=== PATIENT | male | born 1950 | race Caucasian/White ===

== ENCOUNTER 2017-08-14 12:30 | Inpatient (IN) ==
[2017-08-14 13:13] LABS: Basophils % 0.5 % (0.1-2.0); Eosinophils # 0.3 K/mm3 (0.0-0.4); Eosinophils % 4.9 % (0.1-12.0); Hematocrit 26.3 % (42.0-52.0); Lymphocytes % 15.8 K/mm3 (10-50); Mean Corpuscular HGB Conc 24.4 g/dL (31.8-35.4); Mean Corpuscular Hemoglobin 16.2 pg (27.0-31.2); Mean Corpuscular Volume 66.5 fl (80-94); Mean Platelet Volume 8.7 fl (7.4-10.4); Monocytes # 0.3 K/mm3 (0.1-1.0); Monocytes % 5.2 % (1.7-9.3); Neutrophils # 4.8 K/mm3 (1.8-7.8); Neutrophils % 73.6 % (37.0-80.0); Platelet Count 267 K/mm3 (142-424); Red Blood Count 3.96 M/mm3 (4.60-6.20); Red Cell Distribution Width 20.2 % (11.5-17.5); White Blood Count 6.5 K/mm3 (4.8-10.8)
[2017-08-14 13:16] LABS: Hemoglobin 6.4 g/dL (14.1-18.0)
[2017-08-14 13:24] LABS: Activated Partial Thrombo Time 23.6 seconds (23.6-34.0); Prothrombin Time 10.3 seconds (9.4-11.8)
[2017-08-14 13:29] LABS: Albumin Level 3.5 gm/dL (3.4-5.0); Anion Gap 11.9 mEq/L (5-15); Bilirubin,Total 0.6 mg/dL (0.2-1.0); Calcium 8.6 mg/dL (8.5-10.1); Globulin 3.5 gm/dl (1.3-3.2); Potassium 3.9 mmoL/L (3.5-5.1)
--- NOTE | 2017-08-14 13:41 | Emergency Department Note ---
ED Disposition Clinical Impression: Stool guaiac positive, Abdominal pain, RLQ Anemia Qualifiers: Anemia type: unspecified type Qualified Code(s): D64.9 - Anemia, unspecified Disposition: Admitted As Inpatient Condition on Discharge: Good Time of Disposition: 14:26 - Critical Care Critical Care Time: No Attestation: On 08/14/17, the high probability of a clinically significant, sudden or life threatening deterioration of the following system(s) required my full and direct attention, intervention and personal management. The time I documented below is in addition to time spent performing reported procedures but includes the following listed in this critical care notation. Medical Decision Making - Myles Inquiry Pt receiving controlled substance: No Vital Signs: 08/14/17 12:30 08/14/17 16:00 08/14/17 16:25 Temperature 98.2 F 98.4 F 98.3 F Temperature Source Oral Oral Oral Pulse Rate 70 Pulse Rate [Right Radial] 93 H 83 Respiratory Rate 18 20 20 Blood Pressure 126/70 Blood Pressure [Right Arm] 141/75 137/75 Blood Pressure Mean [Right Arm] 97 95 Blood Pressure Source Automatic Cuff Blood Pressure Source [Right Arm] Automatic Cuff Automatic Cuff Blood Pressure Position Supine Blood Pressure Position [Right Arm] Sitting Supine 02 Sat by Pulse Oximetry 97 97 Oxygen Delivery Method Room Air Room Air Room Air - Lab Data Lab results reviewed: Yes: I reviewed the patient's lab results. Lab Results 08/14/17 13:00: WBC 6.5, RBC 3.96 L, Hgb 6.4 L*, Hct 26.3 L, MCV 66.5 L, MCH 16.2 L, MCHC 24.4 L, RDW 20.2 H, Plt Count 267, MPV 8.7, Neut % (Auto) 73.6, Lymph % (Auto) 15.8, [place] % (Auto) 5.2, Eos % (Auto) 4.9, Baso % (Auto) 0.5, Neut # (Auto) 4.8, Lymph # (Auto) 1.0, [place] # (Auto) 0.3, Eos # (Auto) 0.3, Baso # (Auto) 0.0 08/14/17 13:00: Sodium 141, Potassium 3.9, Chloride 106, Carbon Dioxide 27, Anion Gap 11.9, BUN 13, Creatinine 1.01, Estimated Creat Clear 110, Estimated GFR 74, Est GFR ( Amer) 89, Glucose 122 H, Calcium 8.6, Total Bilirubin 0.6, AST 18, ALT 19, Alkaline Phosphatase 202 H, Total Protein 7.0, Albumin 3.5 , Globulin 3.5 H, Albumin/Globulin Ratio 1.0 L 08/14/17 13:00: PT 10.3, INR 1.00, APTT 23.6 08/14/17 13:05: Blood Type B Positive, Antibody Screen Negative, Crossmatch (AHG ) See Detail 08/14/17 14:00: Stool Occult Blood Positive A 08/14/17 15:20: Blood Type Confirm B Positive Result diagrams: 08/16/17 06:37 08/16/17 06:37 Orders (Tests/Meds): ED MEDICATIONS Discontinued Medications Generic Name Dose Route Start Last Admin Trade Name Freq PRN Reason Stop Dose Admin Acetaminophen 650 mg 08/14/17 15:41 Acetaminophen 325mg Tab PO 09/13/17 15:40 Q4HP PRN As Needed for Fever or Pain Barium Sulfate 135 ml 08/15/17 10:28 08/15/17 10:29 Rad-Barium Sulfate(E-Z-Hd 340gm);135ml PO 08/15/17 10:29 135 ml ONCE ONE Administration Barium Sulfate 355 ml 08/15/17 10:28 08/15/17 10:29 Rad-Barium Sulf(Liquid E-Z-Paque);355ml Bot PO 08/15/17 10:29 355 ml ONCE ONE Administration Furosemide 40 mg 08/14/17 21:00 08/16/17 08:16 Lasix 40mg Tablet PO 09/13/17 20:59 40 mg BID OBI Administration Sodium Chloride 1,000 mls @ 999 mls/hr 08/14/17 13:00 08/14/17 12:59 Sod Chlor 0.9% 1000ml Bag IV 08/14/17 14:00 999 mls/hr .Q1H1M OBI Administration Sodium Chloride 250 mls @ 25 mls/hr 08/14/17 14:30 08/15/17 05:14 Sod Chlor 0.9% 250ml Bag IV 08/15/17 14:29 Not Given .Q10H OBI Sodium Chloride 250 mls @ 25 mls/hr 08/14/17 15:41 08/15/17 05:15 Sod Chlor 0.9% 250ml Bag IV 08/15/17 14:29 Not Given .Q10H OBI Sodium Chloride 250 mls @ 25 mls/hr 08/15/17 07:30 08/16/17 08:16 Sod Chlor 0.9% 250ml Bag IV 08/16/17 07:29 Not Given .Q10H OBI Metoprolol Tartrate 50 mg 08/14/17 21:00 08/16/17 08:16 Lopressor 50mg Tablet PO 09/13/17 20:59 50 mg BID OBI Administration Pantoprazole Sodium 40 mg 08/14/17 21:00 08/14/17 15:03 Protonix 40mg Vial IV 09/13/17 20:59 40 mg BID OBI Administration Pantoprazole Sodium 40 mg 08/14/17 21:00 08/16/17 08:16 Protonix 40mg Vial IV 09/13/17 20:59 40 mg BID OBI Administration Potassium Chloride 10 meq 08/14/17 21:00 08/16/17 08:16 Micro-K 10meq Capsule PO 09/13/17 20:59 10 meq BID OBI Administration Pravastatin Sodium 40 mg 08/14/17 21:00 08/15/17 20:27 Pravachol 40mg Tablet PO 09/13/17 20:59 40 mg HS OBI Administration Simethicone/Sodium Bicarb/Citric Ac 1 each 08/15/17 10:28 08/15/17 10:30 Rad-E-Z-Gas Ii Effervescent Granules;1pk PO 08/15/17 10:29 1 each ONCE ONE Administration - Physician Consults Physician Consulted: Dr. Preciado on service call/spoke with Alla Time: 14:26 (admit to Dr. Preciado w sgy consult) Additional Consult: Dr. Hull Time: 14:27 Reason -: Surgical Eval/Care Comment/Response: Dr. Hull evaluated pt in ED, aware CT result still pending; aware of transfusion order x two units; plans EGD tomorrow AM; agrees continue Protonix as already initiated in ED General Adult HPI - General Chief complaint: Weakness Stated complaint: Low Hemoglobin per family doctor Time Seen by Provider: 08/14/17 13:37 Mode of Arrival: Ambulatory Limitations: No Limitations Description of Symptoms (Recalled from ER Triage Doc. by RN): Blood work done yesterday and results with low hemoglobin. pt with intermittent lightheadedness and fatigue. pain in RLQ and back (chronic back pain) - Related Data Home Medications Medication Instructions Recorded Confirmed Aspirin [Aspirin 325mg Tab] 325 mg PO DAILY 08/14/17 08/14/17 Furosemide [Furosemide 40MG tAB] 40 mg PO BID 08/14/17 08/14/17 Metoprolol Tartrate [Lopressor 50 mg PO BID 08/14/17 08/14/17 50mg tablet] Potassium Chloride [Klor-Con 10 meq PO BID 08/14/17 08/14/17 Sprinkle 10mEq] Simvastatin 40 mg PO HS 08/14/17 08/14/17 Previous Rx's Medication Instructions Recorded Pantoprazole Sodium [Protonix 40mg 40 mg PO BID 30 Days #60 tab 08/16/17 tablet] Allergies Allergy/AdvReac Type Severity Reaction Status Date / Time No Known Allergies Allergy Verified 08/14/17 12:50 [facility] History I have reviewed the patient's past medical history: Yes Medical History: Reports:: Diabetes Mellitus Type 2 (pre diabetic) Denies:: Cancer, Diabetes Mellitus Type 1, MRSA Amputation: No - Social History Alcohol Intake: never - Psychiatric History Expresses thoughts of harming self/others: None Suicide Plan Description: No Plan ROS Obtained: Yes All systems reviewed & no additional complaints Physical Exam - General General appearance: alert, in no apparent distress - Head Head exam: atraumatic, normocephalic, normal inspection - Eye Eye exam: Present: normal appearance, PERRL, EOMI - ENT ENT exam: Present: normal exam, normal oropharynx, mucous membranes moist, TM's normal bilaterally, normal external ear exam - Neck Neck exam: Present: normal inspection, full ROM, trachea midline. Absent: meningismus, lymphadenopathy - Chest Chest inspection: Present: normal inspection, symmetric chest wall rise. Absent : tenderness - Respiratory Respiratory exam: Present: normal lung sounds bilaterally. Absent: respiratory distress - Cardiovascular Cardiovascular exam: Present: regular rate, normal rhythm. Absent: JVD - Abdominal Exam Abdominal exam: Present: soft, normal bowel sounds. Absent: distention, tenderness, guarding - Extremities Exam Extremities exam: Present: normal inspection, full ROM, normal capillary refill. Absent: calf tenderness - Back Exam Back exam: Present: normal inspection. Absent: tenderness - Neurological Exam Neurological exam: Present: alert, oriented X3 - Psychiatric Psychiatric exam: Present: normal affect, normal mood - Skin Skin exam: Present: warm, dry, intact, normal color - Lymphatic Lymphatic Findings: no adenopathy
--- NOTE | 2017-08-14 19:37 | Consult Report ---
*Admission Date: 08/14/17 *Chief complaint: weakness *History of present illness: This is a 66yo male seen in consultation after presenting to the ED for further evaluation of anemia. He has been noticing increased weakness over the last few weeks. No LOC. No hematemesis. No BRBPR. + "dark stool for quite a few months". Review of Systems - Constitutional Reports weakness, Denies anorexia - Eyes Denies change in vision - *Cardiovascular Denies chest pain - *Respiratory Denies cough - *Gastrointestinal Reports abdominal pain, Reports black, tarry stools, Denies vomiting blood, Denies nausea, Denies vomiting Comments: vague pain in mid-abdomen - *Genitourinary Denies blood in urine - Hematologic/Lymphatic Denies easy bleeding [facility] History Medical History: Reports:: Coronary Artery Disease, Diabetes Mellitus Type 2 ( pre diabetic) Denies:: Cancer, Diabetes Mellitus Type 1, Internal Pacemaker, MRSA Other Surgeries: No: Pacemaker Amputation: No Fractures: No - *Social History Educational Level: Completed Grade School Smoking Status: Former smoker Tobacco Type: cigarettes Alcohol Intake: never Occupational Status: retired Housing: house Household Members: spouse, children - Psychiatric History Expresses thoughts of harming self/others: None Suicide Plan Description: No Plan Meds Home Medications Medication Instructions Recorded Confirmed Type Aspirin [Aspirin 325mg Tab] 325 mg PO DAILY 08/14/17 08/14/17 History Furosemide [Furosemide 40MG tAB] 40 mg PO BID 08/14/17 08/14/17 History Metoprolol Tartrate [Lopressor 50 mg PO BID 08/14/17 08/14/17 History 50mg tablet] Potassium Chloride [Klor-Con 10 meq PO BID 08/14/17 08/14/17 History Sprinkle 10mEq] Simvastatin 40 mg PO HS 08/14/17 08/14/17 History Allergies Allergy/AdvReac Type Severity Reaction Status Date / Time No Known Allergies Allergy Verified 08/14/17 12:50 Exam Vital signs and Labs for Last 24 Hours: Temp Pulse Resp BP Pulse Ox 97.7 F 92 H 20 133/64 96 08/14/17 19:07 08/14/17 19:07 08/14/17 19:07 08/14/17 19:07 08/14/17 19:07 Laboratory Results - last 24 hr 08/14/17 13:00: WBC 6.5, RBC 3.96 L, Hgb 6.4 L*, Hct 26.3 L, MCV 66.5 L, MCH 16.2 L, MCHC 24.4 L, RDW 20.2 H, Plt Count 267, MPV 8.7, Neut % (Auto) 73.6, Lymph % (Auto) 15.8, [place] % (Auto) 5.2, Eos % (Auto) 4.9, Baso % (Auto) 0.5, Neut # (Auto) 4.8, Lymph # (Auto) 1.0, [place] # (Auto) 0.3, Eos # (Auto) 0.3, Baso # (Auto) 0.0 08/14/17 13:00: Sodium 141, Potassium 3.9, Chloride 106, Carbon Dioxide 27, Anion Gap 11.9, BUN 13, Creatinine 1.01, Estimated Creat Clear 110, Estimated GFR 74, Est GFR ( Amer) 89, Glucose 122 H, Calcium 8.6, Total Bilirubin 0.6, AST 18, ALT 19, Alkaline Phosphatase 202 H, Total Protein 7.0, Albumin 3.5 , Globulin 3.5 H, Albumin/Globulin Ratio 1.0 L 08/14/17 13:00: PT 10.3, INR 1.00, APTT 23.6 08/14/17 13:05: Blood Type B Positive, Antibody Screen Negative, Crossmatch (AHG ) See Detail 08/14/17 14:00: Stool Occult Blood Positive A 08/14/17 15:20: Blood Type Confirm B Positive I & O for Last 24 hours: Intake & Output 08/12/17 08/13/17 08/14/17 08/15/17 11:59 11:59 11:59 11:59 Intake Total 360 / 360 Balance 360 / 360 Weight 235 lb 5 oz - Constitutional no acute distress - *Routine Respiratory Exam Absent: respiratory distress - *Routine Cardiovascular Exam Present: RRR - *Routine Abdominal Exam Present: soft Results - Labs 08/14/17 13:00 08/14/17 13:00 Laboratory Results - last 24 hr 08/14/17 13:00: WBC 6.5, RBC 3.96 L, Hgb 6.4 L*, Hct 26.3 L, MCV 66.5 L, MCH 16.2 L, MCHC 24.4 L, RDW 20.2 H, Plt Count 267, MPV 8.7, Neut % (Auto) 73.6, Lymph % (Auto) 15.8, [place] % (Auto) 5.2, Eos % (Auto) 4.9, Baso % (Auto) 0.5, Neut # (Auto) 4.8, Lymph # (Auto) 1.0, [place] # (Auto) 0.3, Eos # (Auto) 0.3, Baso # (Auto) 0.0 08/14/17 13:00: Sodium 141, Potassium 3.9, Chloride 106, Carbon Dioxide 27, Anion Gap 11.9, BUN 13, Creatinine 1.01, Estimated Creat Clear 110, Estimated GFR 74, Est GFR ( Amer) 89, Glucose 122 H, Calcium 8.6, Total Bilirubin 0.6, AST 18, ALT 19, Alkaline Phosphatase 202 H, Total Protein 7.0, Albumin 3.5 , Globulin 3.5 H, Albumin/Globulin Ratio 1.0 L 08/14/17 13:00: PT 10.3, INR 1.00, APTT 23.6 08/14/17 13:05: Blood Type B Positive, Antibody Screen Negative, Crossmatch (AHG ) See Detail 08/14/17 14:00: Stool Occult Blood Positive A 08/14/17 15:20: Blood Type Confirm B Positive Assessment and Plan (1) Anemia Current visit: Yes Status: Acute Qualifiers: Anemia type: unspecified type Qualified Code(s): D64.9 - Anemia, unspecified Category: Medical Code(s): D64.9 - Anemia, unspecified Likely secondary to UGI source. 1) transfuse as per PCP and ED 2) PPI as ordered 3) EGD in AM -- I have discussed the risks and benefits and he agrees to proceed (2) Stool guaiac positive Current visit: Yes Status: Acute Category: Medical Code(s): R19.5 - Other fecal abnormalities
--- NOTE | 2017-08-14 19:43 | History & Physical Report ---
*Admission Date: 08/14/17 *Chief complaint: weakness, shortness of breath *History of present illness: 66 year old male with a history of COPD, CAD with CABG in 2007, HTN and hyperlipidemia presented to the ED for evaluation of anemia. Patient was seen at [facility] in [facility] yesterday for routine medical exam. He received a phone call today advising him to go to the ED for evaluation as his hemoglobin was low. In the ED, patient was found to have a hemoglobin of 6.4. Patient reports dark stools for approximately one year. He had a colonoscopy in 2004 which showed diverticulosis no polyps. He denies any epigastric pain or discomfort. No nausea, vomiting or diarrhea. He reports increased weakness and shortness of breath over the last month. He contributed this to recent bronchitis. Patient takes 3- Advil every morning and has done this for "a long time." Patient was admitted for surgical consultation and further evaluation. [facility] History I have reviewed the patient's past medical history: Yes Medical History: Reports:: Coronary Artery Disease, Diabetes Mellitus Type 2 ( pre diabetic) Denies:: Cancer, Diabetes Mellitus Type 1, Internal Pacemaker, MRSA Other Surgeries: No: Pacemaker Amputation: No Fractures: No - *Social History Educational Level: Completed Grade School Smoking Status: Former smoker Tobacco Type: cigarettes Alcohol Intake: never Occupational Status: retired Housing: house Household Members: spouse, children - Psychiatric History Expresses thoughts of harming self/others: None Suicide Plan Description: No Plan Review of Systems - Review of Systems Review of systems:: pertinent systems reviewed and negative unless documented below - Constitutional Reports weakness - *Respiratory Reports cough, Reports shortness of breath - *Gastrointestinal Reports black, tarry stools - *Neurologic Reports weakness Meds Home Medications Medication Instructions Recorded Confirmed Type Aspirin [Aspirin 325mg Tab] 325 mg PO DAILY 08/14/17 08/14/17 History Furosemide [Furosemide 40MG tAB] 40 mg PO BID 08/14/17 08/14/17 History Metoprolol Tartrate [Lopressor 50 mg PO BID 08/14/17 08/14/17 History 50mg tablet] Potassium Chloride [Klor-Con 10 meq PO BID 08/14/17 08/14/17 History Sprinkle 10mEq] Simvastatin 40 mg PO HS 08/14/17 08/14/17 History Allergies Allergy/AdvReac Type Severity Reaction Status Date / Time No Known Allergies Allergy Verified 08/14/17 12:50 Exam Vital signs and Labs for Last 24 Hours: Temp Pulse Resp BP Pulse Ox 97.7 F 92 H 20 133/64 96 08/14/17 19:07 08/14/17 19:07 08/14/17 19:07 08/14/17 19:07 08/14/17 19:07 Laboratory Results - last 24 hr 08/14/17 13:00: WBC 6.5, RBC 3.96 L, Hgb 6.4 L*, Hct 26.3 L, MCV 66.5 L, MCH 16.2 L, MCHC 24.4 L, RDW 20.2 H, Plt Count 267, MPV 8.7, Neut % (Auto) 73.6, Lymph % (Auto) 15.8, [place] % (Auto) 5.2, Eos % (Auto) 4.9, Baso % (Auto) 0.5, Neut # (Auto) 4.8, Lymph # (Auto) 1.0, [place] # (Auto) 0.3, Eos # (Auto) 0.3, Baso # (Auto) 0.0 08/14/17 13:00: Sodium 141, Potassium 3.9, Chloride 106, Carbon Dioxide 27, Anion Gap 11.9, BUN 13, Creatinine 1.01, Estimated Creat Clear 110, Estimated GFR 74, Est GFR ( Amer) 89, Glucose 122 H, Calcium 8.6, Total Bilirubin 0.6, AST 18, ALT 19, Alkaline Phosphatase 202 H, Total Protein 7.0, Albumin 3.5 , Globulin 3.5 H, Albumin/Globulin Ratio 1.0 L 08/14/17 13:00: PT 10.3, INR 1.00, APTT 23.6 08/14/17 13:05: Blood Type B Positive, Antibody Screen Negative, Crossmatch (AHG ) See Detail 08/14/17 14:00: Stool Occult Blood Positive A 08/14/17 15:20: Blood Type Confirm B Positive I & O for Last 24 hours: Intake & Output 08/12/17 08/13/17 08/14/17 08/15/17 11:59 11:59 11:59 11:59 Intake Total 360 / 360 Balance 360 / 360 Weight 235 lb 5 oz Narrative: Alert and oriented x3. Rate and rhythm regular. Trace LE edema. Lung sounds with scattered rhonchi on right and diminished bilateral bases. Nose clear. Moist mucous membranes. Abdomen protuberant but soft, non-tender, normoactive bowel sounds. Skin pale, warm and dry H&P: Result - Labs Labs: Short CBC 08/14/17 Range/Units 13:00 WBC 6.5 (4.8-10.8) K/mm3 Hgb 6.4 L* (14.1-18.0) g/dL Hct 26.3 L (42.0-52.0) % Plt Count 267 (142-424) K/mm3 BMP 08/14/17 13:00 Sodium 141 Potassium 3.9 Chloride 106 Carbon Dioxide 27 BUN 13 Creatinine 1.01 Glucose 122 H Calcium 8.6 Liver Function 08/14/17 Range/Units 13:00 Total Bilirubin 0.6 (0.2-1.0) mg/dL AST 18 (15-37) U/L ALT 19 (12-78) U/L Alkaline Phosphatase 202 H (46-116) U/L Albumin 3.5 (3.4-5.0) gm/dL Assessment and Plan (1) Anemia Current visit: Yes Status: Acute Qualifiers: Anemia type: unspecified type Qualified Code(s): D64.9 - Anemia, unspecified Category: Medical Code(s): D64.9 - Anemia, unspecified (2) Stool guaiac positive Current visit: Yes Status: Acute Category: Medical Code(s): R19.5 - Other fecal abnormalities - Assessment and plan all Dx Assessment and Plan for all problems:: Continue PPI. Transfuse with 2 units PRBC's. Surgery consulted with plan for EGD in the am.
[2017-08-14 21:56] LABS: Hematocrit 30.2 % (42.0-52.0)
[2017-08-14 22:00] LABS: Hemoglobin 8.1 g/dL (14.1-18.0)
--- NOTE | 2017-08-15 06:27 | Progress Note ---
Subjective Patient reports: no new complaints Exam Vital signs and Labs for Last 24 Hours: Temp Pulse Resp BP Pulse Ox 98.1 F 93 H 20 134/76 93 L 08/15/17 04:00 08/15/17 04:00 08/15/17 04:00 08/15/17 04:00 08/15/17 04:00 Laboratory Results - last 24 hr 08/14/17 13:00: WBC 6.5, RBC 3.96 L, Hgb 6.4 L*, Hct 26.3 L, MCV 66.5 L, MCH 16.2 L, MCHC 24.4 L, RDW 20.2 H, Plt Count 267, MPV 8.7, Neut % (Auto) 73.6, Lymph % (Auto) 15.8, [place] % (Auto) 5.2, Eos % (Auto) 4.9, Baso % (Auto) 0.5, Neut # (Auto) 4.8, Lymph # (Auto) 1.0, [place] # (Auto) 0.3, Eos # (Auto) 0.3, Baso # (Auto) 0.0 08/14/17 13:00: Sodium 141, Potassium 3.9, Chloride 106, Carbon Dioxide 27, Anion Gap 11.9, BUN 13, Creatinine 1.01, Estimated Creat Clear 110, Estimated GFR 74, Est GFR ( Amer) 89, Glucose 122 H, Calcium 8.6, Total Bilirubin 0.6, AST 18, ALT 19, Alkaline Phosphatase 202 H, Total Protein 7.0, Albumin 3.5 , Globulin 3.5 H, Albumin/Globulin Ratio 1.0 L 08/14/17 13:00: PT 10.3, INR 1.00, APTT 23.6 08/14/17 13:05: Blood Type B Positive, Antibody Screen Negative, Crossmatch (AHG ) See Detail 08/14/17 14:00: Stool Occult Blood Positive A 08/14/17 15:20: Blood Type Confirm B Positive 08/14/17 20:46: POC Glucose 156 H 08/14/17 21:47: Hgb 8.1 L D, Hct 30.2 L 08/15/17 06:04: POC Glucose 121 H I & O for Last 24 hours: Intake & Output 08/12/17 08/13/17 08/14/17 08/15/17 11:59 11:59 11:59 11:59 Intake Total 360 / 360 Output Total 700 / 700 Balance -340 / -340 Weight 235 lb 5 oz - Constitutional no acute distress - *Routine Respiratory Exam Absent: respiratory distress - *Routine Cardiovascular Exam Present: RRR Progress Note: A&P (1) Anemia Status: Acute Assessment and plan: good response to 2units PRBCs EGD this AM Current Visit: Yes (2) Stool guaiac positive Status: Acute Current Visit: Yes
[2017-08-15 06:44] LABS: Basophils % 0.2 % (0.1-2.0); Eosinophils # 0.3 K/mm3 (0.0-0.4); Eosinophils % 5.9 % (0.1-12.0); Hematocrit 28.7 % (42.0-52.0); Lymphocytes # 0.9 K/mm3 (0.7-4.5); Mean Corpuscular HGB Conc 26.7 g/dL (31.8-35.4); Mean Corpuscular Hemoglobin 18.6 pg (27.0-31.2); Mean Corpuscular Volume 69.6 fl (80-94); Mean Platelet Volume 7.8 fl (7.4-10.4); Monocytes # 0.4 K/mm3 (0.1-1.0); Monocytes % 6.7 % (1.7-9.3); Neutrophils # 3.9 K/mm3 (1.8-7.8); Neutrophils % 71.2 % (37.0-80.0); Platelet Count 211 K/mm3 (142-424); Red Blood Count 4.12 M/mm3 (4.60-6.20); White Blood Count 5.5 K/mm3 (4.8-10.8)
[2017-08-15 06:52] LABS: Anion Gap 9.8 mEq/L (5-15); Calcium 8.4 mg/dL (8.5-10.1); Potassium 3.8 mmoL/L (3.5-5.1)
--- NOTE | 2017-08-15 07:06 | Pharmacy Consult Notes ---
[facility] Pharmacy VTE Monitoring - Patient Demographics Admission date: 08/14/17 Report Date: 08/15/17 Time: 07:06 Allergies/Adverse Reactions: Patient Allergies No Known Allergies Allergy (Verified 08/14/17 12:50) Height: 1.7 m Weight: 106.736 kg Patient Problems: Current Active Problems Anemia (Acute) Stool guaiac positive (Acute) Abdominal pain, RLQ (Acute) - VTE Risk Labs: VTE Related Lab Results Hgb 8.1 g/dL (14.1-18.0) L D 08/14/17 21:47 Hct 30.2 % (42.0-52.0) L 08/14/17 21:47 Plt Count 267 K/mm3 (142-424) 08/14/17 13:00 PT 10.3 seconds (9.4-11.8) 08/14/17 13:00 INR 1.00 (0.9-1.1) 08/14/17 13:00 APTT 23.6 seconds (23.6-34.0) 08/14/17 13:00 BUN 12 mg/dL (7-18) 08/15/17 06:33 Creatinine 1.02 mg/dL (0.70-1.30) 08/15/17 06:33 Estimated Creat Clear 108 mL/min (0-300) 08/15/17 06:33 Was VTE Risk Assessment Performed: Yes VTE Score: 3 VTE Risk Level: Low Risk Clinical Trial Participant: No - Prophylaxis VTE Prophylaxis Ordered?: Yes Types of VTE Prophylaxis: TEDS Knee High
[2017-08-15 07:17] LABS: Hemoglobin 7.7 g/dL (14.1-18.0)
--- NOTE | 2017-08-15 07:23 | Procedure Note ---
- Procedure: Date: 08/15/17 Procedure Performed:: Esophagogastroduodenoscopy with biopsy Indications:: Anemia and melena Performing Provider:: Basim Hull MD Referring Provider:: Dr. Preciado Sedation:: Monitored anesthesia care Procedure:: After informed consent was obtained, the patient was taken to the endoscopy suite. Monitored anesthesia care ensued after he was transferred to the left lateral decubitus position. The gastroscope was advanced. The gastroesophageal junction was at 42 cm. The stomach was entered. Retroflexion revealed a sliding hiatal hernia. No ulcerations or active bleeding noted. Fairly significant inflammatory changes were noted distally. A biopsy of the antrum was obtained. The pylorus was intubated. No significant abnormalities of the duodenal mucosa (severe inflammation or ulceration) were seen. The gastroscope was carefully removed and the patient was transferred to recovery. Findings:: Gastroesophageal junction at 42 cm Sliding hiatal hernia Focal moderate to severe gastritis distally, but no sign of ulceration or active /recent bleeding Specimens:: Antral biopsy Recommendations:: Continue proton pump inhibitor UGI/SBFT ordered Complications:: No immediate Estimated blood obtained (mL): 1
--- NOTE | 2017-08-15 07:39 | Progress Note ---
[facility] Anesthesia Checklist - Patient Identification Patient Identification: Arm Band - Structural Data Admitted From: Home Planned Operative Procedure/s: egd Consent for Planned Operative Procedure(s) Verified: Yes Verified Documents: Surgical Consent, History and Physical - NPO Status Verified Time NPO: 00:00 - Additional verifications Anesthesia Reactions: No - Airway Assessment C-Spine Mobility Assessed: Yes (mp2) TMJ Mobility Assessed: Yes Dentition: Edentulous - Neurological Assessment Level of Consciousness: Awake, Alert - Anesthesia Plan Anesthesia Risk discussed: Yes Anesthesia Plan: Verified ASA Class: III Anesthesia Type: MAC [facility] Anesthesia HX I have reviewed the patient's past medical history: Yes Medical History: Reports:: Chronic Obstructive Pulmonary Disease (COPD), Coronary Artery Disease, Diabetes Mellitus Type 2 (pre diabetic) Denies:: Cancer, Diabetes Mellitus Type 1, Internal Pacemaker, MRSA Other Surgeries: Yes: Cardiac Surgery (cabg). No: Pacemaker Amputation: No Fractures: No
--- NOTE | 2017-08-15 08:08 | Progress Note ---
Internal Medicine - PN: Subj *Date: 08/15/17 *Time: 08:07 Interval history: Patient had endoscopy this morning. Appreciate surgery input, discussed case with surgeon. Exam Vital signs and Labs for Last 24 Hours: Temp Pulse Resp BP Pulse Ox 98.1 F 84 18 112/62 96 08/15/17 07:20 08/15/17 07:40 08/15/17 07:40 08/15/17 07:40 08/15/17 07:40 Laboratory Results - last 24 hr 08/14/17 13:00: WBC 6.5, RBC 3.96 L, Hgb 6.4 L*, Hct 26.3 L, MCV 66.5 L, MCH 16.2 L, MCHC 24.4 L, RDW 20.2 H, Plt Count 267, MPV 8.7, Neut % (Auto) 73.6, Lymph % (Auto) 15.8, [place] % (Auto) 5.2, Eos % (Auto) 4.9, Baso % (Auto) 0.5, Neut # (Auto) 4.8, Lymph # (Auto) 1.0, [place] # (Auto) 0.3, Eos # (Auto) 0.3, Baso # (Auto) 0.0 08/14/17 13:00: Sodium 141, Potassium 3.9, Chloride 106, Carbon Dioxide 27, Anion Gap 11.9, BUN 13, Creatinine 1.01, Estimated Creat Clear 110, Estimated GFR 74, Est GFR ( Amer) 89, Glucose 122 H, Calcium 8.6, Total Bilirubin 0.6, AST 18, ALT 19, Alkaline Phosphatase 202 H, Total Protein 7.0, Albumin 3.5 , Globulin 3.5 H, Albumin/Globulin Ratio 1.0 L 08/14/17 13:00: PT 10.3, INR 1.00, APTT 23.6 08/14/17 13:05: Blood Type B Positive, Antibody Screen Negative, Crossmatch ([facility] ) See Detail 08/14/17 14:00: Stool Occult Blood Positive A 08/14/17 15:20: Blood Type Confirm B Positive 08/14/17 20:46: POC Glucose 156 H 08/14/17 21:47: Hgb 8.1 L D, Hct 30.2 L 08/15/17 06:04: POC Glucose 121 H 08/15/17 06:33: WBC 5.5, RBC 4.12 L, Hgb 7.7 L*, Hct 28.7 L, MCV 69.6 L, MCH 18.6 L, MCHC 26.7 L, RDW 21.0 H, Plt Count 211, MPV 7.8, Neut % (Auto) 71.2, Lymph % (Auto) 16.0, [place] % (Auto) 6.7, Eos % (Auto) 5.9, Baso % (Auto) 0.2, Neut # (Auto) 3.9, Lymph # (Auto) 0.9, [place] # (Auto) 0.4, Eos # (Auto) 0.3, Baso # (Auto) 0.0 08/15/17 06:33: Sodium 141, Potassium 3.8, Chloride 106, Carbon Dioxide 29, Anion Gap 9.8, BUN 12, Creatinine 1.02, Estimated Creat Clear 108, Estimated GFR 73, Est GFR ( Amer) 88, Glucose 115 H, Calcium 8.4 L I & O for Last 24 hours: Intake & Output 08/12/17 08/13/17 08/14/17 08/15/17 11:59 11:59 11:59 11:59 Intake Total 360 / 360 Output Total 700 / 700 Balance -340 / -340 Weight 235 lb 5 oz Narrative: Patient is awake, alert. Pleasant. Does not feel badly. No chest pain or shortness of air. Lungs are clear, heart rate regular, abdomen soft and nontender. No edema. Assessment and Plan (1) Anemia Current visit: Yes Status: Acute Qualifiers: Anemia type: unspecified type Qualified Code(s): D64.9 - Anemia, unspecified Category: Medical Code(s): D64.9 - Anemia, unspecified (2) Stool guaiac positive Current visit: Yes Status: Acute Category: Medical Code(s): R19.5 - Other fecal abnormalities - Assessment and plan all Dx Assessment and Plan for all problems:: Hemoglobin still 7.7. Transfuse today. Agree with surgical plan for upper GI.
[2017-08-15 18:48] LABS: Hematocrit 34.4 % (42.0-52.0)
[2017-08-15 18:54] LABS: Hemoglobin 9.8 g/dL (14.1-18.0)
[2017-08-16 07:26] LABS: Basophils % 0.5 % (0.1-2.0); Eosinophils # 0.4 K/mm3 (0.0-0.4); Eosinophils % 4.8 % (0.1-12.0); Hematocrit 35.1 % (42.0-52.0); Hemoglobin 9.8 g/dL (14.1-18.0); Lymphocytes # 1.2 K/mm3 (0.7-4.5); Lymphocytes % 17.1 K/mm3 (10-50); Mean Corpuscular HGB Conc 27.9 g/dL (31.8-35.4); Mean Corpuscular Hemoglobin 19.9 pg (27.0-31.2); Mean Corpuscular Volume 71.1 fl (80-94); Mean Platelet Volume 7.2 fl (7.4-10.4); Monocytes # 0.5 K/mm3 (0.1-1.0); Monocytes % 6.8 % (1.7-9.3); Neutrophils # 5.1 K/mm3 (1.8-7.8); Neutrophils % 70.8 % (37.0-80.0); Platelet Count 207 K/mm3 (142-424); Red Blood Count 4.93 M/mm3 (4.60-6.20); Red Cell Distribution Width 21.3 % (11.5-17.5); White Blood Count 7.1 K/mm3 (4.8-10.8)
[2017-08-16 07:39] LABS: Albumin Level 3.4 gm/dL (3.4-5.0); Anion Gap 11.5 mEq/L (5-15); Bilirubin,Total 1.3 mg/dL (0.2-1.0); Calcium 8.5 mg/dL (8.5-10.1); Globulin 3.5 gm/dl (1.3-3.2); Potassium 3.5 mmoL/L (3.5-5.1); Total Protein,Serum 6.9 gm/dL (6.4-8.2)
--- NOTE | 2017-08-16 08:13 | Progress Note ---
Subjective Patient reports: no new complaints Exam Vital signs and Labs for Last 24 Hours: Temp Pulse Resp BP Pulse Ox 98.3 F 71 20 130/69 96 08/16/17 04:00 08/16/17 04:00 08/16/17 04:00 08/16/17 04:00 08/16/17 07:46 Laboratory Results - last 24 hr 08/14/17 13:05: Blood Type B Positive, Antibody Screen Negative, Crossmatch ([facility] ) See Detail 08/15/17 14:18: POC Glucose 107 08/15/17 16:27: POC Glucose 115 H 08/15/17 18:41: Hgb 9.8 L D, Hct 34.4 L 08/15/17 20:36: POC Glucose 98 08/16/17 05:59: POC Glucose 102 08/16/17 06:37: WBC 7.1 D, RBC 4.93, Hgb 9.8 L, Hct 35.1 L, MCV 71.1 L, MCH 19.9 L, MCHC 27.9 L, RDW 21.3 H, Plt Count 207, MPV 7.2 L, Neut % (Auto) 70.8, Lymph % (Auto) 17.1, [place] % (Auto) 6.8, Eos % (Auto) 4.8, Baso % (Auto) 0.5, Neut # (Auto) 5.1, Lymph # (Auto) 1.2, [place] # (Auto) 0.5, Eos # (Auto) 0.4, Baso # (Auto) 0.0 08/16/17 06:37: Sodium 138, Potassium 3.5, Chloride 102, Carbon Dioxide 28, Anion Gap 11.5, BUN 9, Creatinine 0.99, Estimated Creat Clear 110, Estimated GFR 76, Est GFR ( Amer) 92, Glucose 101, Calcium 8.5, Total Bilirubin 1.3 H, AST 18, ALT 20, Alkaline Phosphatase 196 H, Total Protein 6.9, Albumin 3.4, Globulin 3.5 H, Albumin/Globulin Ratio 1.0 L I & O for Last 24 hours: Intake & Output 08/13/17 08/14/17 08/15/17 08/16/17 11:59 11:59 11:59 11:59 Intake Total 360 / 360 420 / 420 Output Total 700 / 700 600 / 600 Balance -340 / -340 -180 / -180 Weight 235 lb 5 oz 235 lb 5.001 oz - Constitutional no acute distress - *Routine Respiratory Exam Absent: respiratory distress Progress Note: A&P (1) Anemia Status: Acute Assessment and plan: H/H stable. No definitive source per EGD or UGI/SBFT. OK for D/C home with close follow-up. Outpatient colonoscopy in the very near future. Current Visit: Yes (2) Stool guaiac positive Status: Acute Current Visit: Yes
--- NOTE | 2017-08-16 08:34 | Discharge Summary ---
General - General Admission date:: 08/14/17 Discharge date: 08/16/17 HPI HPI: 66 year old male with a history of COPD, CAD with CABG in 2007, HTN and hyperlipidemia presented to the ED for evaluation of anemia. Patient was seen at [facility] in [facility] yesterday for routine medical exam. He received a phone call today advising him to go to the ED for evaluation as his hemoglobin was low. In the ED, patient was found to have a hemoglobin of 6.4. Patient reports dark stools for approximately one year. He had a colonoscopy in 2004 which showed diverticulosis no polyps. He denies any epigastric pain or discomfort. No nausea, vomiting or diarrhea. He reports increased weakness and shortness of breath over the last month. He contributed this to recent bronchitis. Patient takes 3- Advil every morning and has done this for "a long time." Patient was admitted for surgical consultation and further evaluation. Hospital Course Hospital Course: Patient was admitted. He was given 2 units of packed cells with modest improvement in his hemoglobin. Surgical consultation was obtained and appreciated. EGD was done which revealed minimal gastritis, upper GI with small bowel follow- through was also done which is essentially normal. Patient was given another 2 units of packed cells which improved his hemoglobin up to 9.8. He felt much better. This morning he is doing well, eating well and he will be discharged home with twice daily proton pump inhibitor. We will arrange surgical follow-up for outpatient colonoscopy in the very near future. Objective Vital signs: Temp Pulse Resp BP Pulse Ox 98.3 F 71 20 130/69 96 08/16/17 04:00 08/16/17 04:00 08/16/17 04:00 08/16/17 04:00 08/16/17 07:46 Narrative: Is pleasant, alert, oriented 3. Abdomen soft and nontender. Lungs are clear, heart rate regular. No perfusion deficits. No scleral icterus or jaundice. Results Labs on day of discharge: Labs from last 24 hours 08/16/17 08/16/17 08/16/17 06:37 06:37 05:59 WBC 7.1 D RBC 4.93 Hgb 9.8 L Hct 35.1 L MCV 71.1 L MCH 19.9 L MCHC 27.9 L RDW 21.3 H Plt Count 207 MPV 7.2 L Neut % (Auto) 70.8 Lymph % (Auto) 17.1 [place] % (Auto) 6.8 Eos % (Auto) 4.8 Baso % (Auto) 0.5 Neut # (Auto) 5.1 Lymph # (Auto) 1.2 [place] # (Auto) 0.5 Eos # (Auto) 0.4 Baso # (Auto) 0.0 Sodium 138 Potassium 3.5 Chloride 102 Carbon Dioxide 28 Anion Gap 11.5 BUN 9 Creatinine 0.99 Estimated Creat Clear 110 Estimated GFR 76 Est GFR ( Amer) 92 Glucose 101 POC Glucose 102 Calcium 8.5 Total Bilirubin 1.3 H AST 18 ALT 20 Alkaline Phosphatase 196 H Total Protein 6.9 Albumin 3.4 Globulin 3.5 H Albumin/Globulin Ratio 1.0 L Blood Type Antibody Screen Crossmatch ([facility]) 08/15/17 08/15/17 08/15/17 20:36 18:41 16:27 WBC RBC Hgb 9.8 L D Hct 34.4 L MCV MCH MCHC RDW Plt Count MPV Neut % (Auto) Lymph % (Auto) [place] % (Auto) Eos % (Auto) Baso % (Auto) Neut # (Auto) Lymph # (Auto) [place] # (Auto) Eos # (Auto) Baso # (Auto) Sodium Potassium Chloride Carbon Dioxide Anion Gap BUN Creatinine Estimated Creat Clear Estimated GFR Est GFR ( Amer) Glucose POC Glucose 98 115 H Calcium Total Bilirubin AST ALT Alkaline Phosphatase Total Protein Albumin Globulin Albumin/Globulin Ratio Blood Type Antibody Screen Crossmatch ([facility]) 08/15/17 08/14/17 14:18 13:05 WBC RBC Hgb Hct MCV MCH MCHC RDW Plt Count MPV Neut % (Auto) Lymph % (Auto) [place] % (Auto) Eos % (Auto) Baso % (Auto) Neut # (Auto) Lymph # (Auto) [place] # (Auto) Eos # (Auto) Baso # (Auto) Sodium Potassium Chloride Carbon Dioxide Anion Gap BUN Creatinine Estimated Creat Clear Estimated GFR Est GFR ( Amer) Glucose POC Glucose 107 Calcium Total Bilirubin AST ALT Alkaline Phosphatase Total Protein Albumin Globulin Albumin/Globulin Ratio Blood Type B Positive Antibody Screen Negative Crossmatch ([facility]) See Detail DS: Diagnosis - Discharge Diagnosis (1) Anemia Status: Acute (2) Stool guaiac positive Status: Acute (3) Acute gastritis with bleeding Status: Acute Discharge Plan - Patient Discharge Instructions ACTIVITY: Continue current activity DIET: continue same diet - Follow up Plan Follow up with: Basim Hull MD [Staff Physician] - 1 week Disposition: Home, Self-Custodial Medications: Home Medications Medication Instructions Recorded Confirmed Type Aspirin [Aspirin 325mg Tab] 325 mg PO DAILY 08/14/17 08/14/17 History Furosemide [Furosemide 40MG tAB] 40 mg PO BID 08/14/17 08/14/17 History Metoprolol Tartrate [Lopressor 50 mg PO BID 08/14/17 08/14/17 History 50mg tablet] Potassium Chloride [Klor-Con 10 meq PO BID 08/14/17 08/14/17 History Sprinkle 10mEq] Simvastatin 40 mg PO HS 08/14/17 08/14/17 History Prescriptions/Medication Reconciliation: New Pantoprazole Sodium [Protonix 40mg tablet] 40 mg PO BID 30 Days #60 tab Continue Aspirin [Aspirin 325mg Tab] 325 mg PO DAILY Potassium Chloride [Klor-Con Sprinkle 10mEq] 10 meq PO BID Simvastatin 40 mg PO HS Metoprolol Tartrate [Lopressor 50mg tablet] 50 mg PO BID Furosemide [Furosemide 40MG tAB] 40 mg PO BID
== END 2017-08-16 10:10 | disposition home or self-care (01) ==
LOC: ER 12:30 → 2ND 15:36
PROVIDERS: ADMIT Internal Medicine Adolescent Medicine; ATTEND Internal Medicine Adolescent Medicine

== ENCOUNTER → 2017-08-25 13:54 | Outpatient (CLI) | payer MEDICARE, SELFPAY ==
[2017-08-25 14:18] LABS: Hemoglobin 9.5 g/dL (14.1-18.0)
== END ==
PROVIDERS: Visit Provider Surgery
DX: Z01.818 Encounter for other preprocedural examination (principal); R10.9 Unspecified abdominal pain; D64.9 Anemia, unspecified; R19.5 Other fecal abnormalities
CPT/HCPCS: 36415; 85014; 85018; 93005